=== PATIENT | male | born 1955 | race Caucasian/White ===

== ENCOUNTER 2019-03-25 09:21 | Day surgery (SDC) | payer OTHER ==
[~2019-03-25] VITALS: Ht 172.7 cm; Wt 168.0 kg
[2019-03-25] MEDS ORDERED: ALBU90OI INH (10:31)
[2019-03-25] MEDS ORDERED: BUPR150ER PO (10:32)
[2019-03-25] MEDS ORDERED: Epipen Jr0.15 MG/0. IM (10:33)
[2019-03-25] MEDS ORDERED: Metformin HCl1000 MG PO (10:34)
[2019-03-25] MEDS ORDERED: Prozac20 MG PO (10:34)
[2019-03-25] MEDS ORDERED: Pravachol40 MG PO (10:34)
[2019-03-25] MEDS ORDERED: TRAZ50 PO (10:34)
--- NOTE | 2019-03-25 11:52 | NUR ---
03/25/19 1152 Cynthia Talley PT VERY SLOW TO AWAKE, WHEN AWAKE ORAL AIRWAY WAS REMOVED. VSS.
--- NOTE | 2019-03-25 12:08 | NUR ---
03/25/19 1208 Cynthia Talley PT RESTING COMFORTABLY, XRAY CALLED. REPORT GIVEN TO FANTASMA TRINH TO ASSUME CARE OF PT, PT LEFT IN HER CARE.
--- NOTE | 2019-03-25 13:53 | NUR ---
03/25/19 1353 Willam Merida 2 IV ATTEMPTS - WILLAM MEEK LEFT FOREARM/ INFILTRATED 2 IV ATTEMPTS- NATAN MEEK LEFT HAND/LAC- INFILTRATED
== END 2019-03-25 13:27 | disposition home or self-care (01) ==
LOC: ORSCSDS 09:21
PROVIDERS: Surgery
PROC: 05HM33Z Insertion of Infusion Device into Right Internal Jugular Vein, Percutaneous Approach (ICD-10-PCS; principal; 2019-03-25 10:45)
PROC: B5131ZA Fluoroscopy of Right Jugular Veins using Low Osmolar Contrast, Guidance (ICD-10-PCS; principal; 2019-03-25 10:45)
DX: C18.7 Malignant neoplasm of sigmoid colon (principal); E11.9 Type 2 diabetes mellitus without complications; Z79.899 Other long term (current) drug therapy
CPT/HCPCS: 77001; 82947; C1788; J0690; J1642; J2250; J2405; J2704; J3010

== ENCOUNTER → 2019-04-21 | Outpatient (CLI) | payer OTHER ==
[~2019-04-21] MED LIST: ALBU90OI INH; BUPR150ER PO; Epipen Jr0.15 MG/0. IM; Metformin HCl1000 MG PO; Pravachol40 MG PO; Prozac20 MG PO; TRAZ50 PO
[2019-04-21 15:12] LABS: Albumin, Blood 3.3 g/dL (3.4-5.0); Albumin/Globulin Ratio 0.9 (0.8-1.8); Bilirubin, Total 0.2 mg/dL (0.1-1.0); Bun/Creatinine Ratio 17.1 (12.0-20.0); Creatinine, Blood 1.4 mg/dL (0.60-1.20); Globulin, Blood 3.7 g/dL (2.2-4.0); Potassium, Blood 4.7 mmol/L (3.5-5.5)
== END | disposition home or self-care (01) ==
LOC: LAB 12:41 → LAB SHORT 12:41
PROVIDERS: Internal Medicine Hematology & Oncology
DX: D51.8 Other vitamin B12 deficiency anemias (principal); C18.9 Malignant neoplasm of colon, unspecified
CPT/HCPCS: 80053; 82607; 82746

== ENCOUNTER → 2019-05-04 | Outpatient (CLI) | payer OTHER | END | disposition home or self-care (01) | LOC: LAB 10:30 → LAB SHORT 10:30 | DX: C18.9 Malignant neoplasm of colon, unspecified (principal) | CPT/HCPCS: 82378 ==

== ENCOUNTER 2019-06-22 08:28 | Day surgery (SDC) | payer OTHER ==
--- NOTE | 2019-06-22 12:04 | NUR ---
PT TO RADIOLOGY FOR CT SCAN
--- NOTE | 2019-06-22 12:24 | NUR ---
PATIENT TAKEN TO RADIOLOGY AND DISCHARGED FROM RADIOLOGY HAS NOT QUESTIONS ABOUT DISCHARGE INSTRUCTIONS.
--- NOTE | 2019-06-24 12:37 | NUR ---
06/24/19 1237 Regina Renee PROCEDURE EDIT FOR PURPOSES OF VERIFICATION.
== END 2019-06-22 22:35 | disposition home or self-care (01) ==
LOC: CT 08:28
DX: C64.2 Malignant neoplasm of left kidney, except renal pelvis (principal); J45.909 Unspecified asthma, uncomplicated; C18.9 Malignant neoplasm of colon, unspecified; E10.9 Type 1 diabetes mellitus without complications; Z79.899 Other long term (current) drug therapy
CPT/HCPCS: 50200; 77012; 88305; 88341; 88342

== ENCOUNTER → 2019-07-25 | Outpatient (CLI) | payer OTHER ==
[2019-07-25 15:17] LABS: Alanine Aminotransfer (ALT/SGP 19 U/L (12-78); Albumin, Blood 3.2 g/dL (3.4-5.0); Alk Phos 81 U/L (50-136); Anion Gap 8 mmol/L (6-16); Aspartate Aminotrans (AST/SGOT 19 U/L (12-37); Bilirubin, Total 0.2 mg/dL (0.1-1.0); Blood Urea Nitrogen 20 mg/dL (8-24); CO2, Blood 26 mmol/L (21-32); Calcium, Blood 8.7 mg/dL (8.5-10.1); Chloride, Blood 105 mmol/L (98-108); Globulin, Blood 3.3 g/dL (2.2-4.0); Glomerular Filtration Rate >60 (60-); Glucose, Blood 159 mg/dL (70-99); Potassium, Blood 4.7 mmol/L (3.5-5.5); Sodium, Blood 139 mmol/L (136-145); Total Protein, Blood 6.5 g/dL (6.4-8.2)
== END | disposition home or self-care (01) ==
LOC: LAB 09:55 → LAB SHORT 09:55
PROVIDERS: Internal Medicine Hematology & Oncology
DX: C18.7 Malignant neoplasm of sigmoid colon (principal)
CPT/HCPCS: 80053; 82378

== ENCOUNTER → 2019-08-31 | Outpatient (CLI) | payer OTHER, MEDICARE ==
[2019-08-31 11:49] LABS: BASOPHILS ABSOLUTE AUTO 0.05 K/mm3 (0.00-0.23); BASOPHILS PERCENT AUTO 1 % (0-2); EOSINOPHILS ABSOLUTE AUTO 0.67 K/mm3 (0.00-0.68); EOSINOPHILS PERCENT AUTO 10 % (0-6); Hematocrit 34.6 % (37.0-53.0); Hemoglobin 10.8 g/dL (13.5-17.5); IMMATURE GRAN ABSOLUTE AUTO 0.01 K/mm3 (0.00-0.10); IMMATURE GRAN PERCENT AUTO 0 % (0-1); LYMPHOCYTES ABSOLUTE AUTO 1.11 K/mm3 (0.84-5.20); LYMPHOCYTES PERCENT AUTO 17 % (21-46); MONOCYTES ABSOLUTE AUTO 0.91 K/mm3 (0.16-1.47); MONOCYTES PERCENT AUTO 14 % (4-13); Mean Corpuscular HGB 28.1 pg (26.0-34.0); Mean Corpuscular HGB Conc 31.2 g/dL (31.5-36.5); Mean Corpuscular Volume 90 fL (80-100); NEUTROPHILS ABSOLUTE AUTO 3.93 K/mm3 (1.96-9.15); NEUTROPHILS PERCENT AUTO 59 % (41-73); Platelet Count 314 K/mm3 (150-400); RDW Coefficient Variation 15.6 % (11.7-14.2); RDW Standard Deviation 50.8 fL (35.1-46.3); Red Blood Cell Count 3.85 M/mm3 (4.30-5.90); White Blood Cell Count 6.68 K/mm3 (4.00-11.30)
== END | disposition home or self-care (01) ==
LOC: LAB 11:31 → LAB SHORT 11:31
PROVIDERS: Internal Medicine Hematology & Oncology
DX: C18.7 Malignant neoplasm of sigmoid colon (principal)
CPT/HCPCS: 82378; 85025

== ENCOUNTER → 2019-09-06 | Outpatient (CLI) | payer OTHER, MEDICARE | END | disposition home or self-care (01) | LOC: LAB 17:24 → LAB SHORT 17:24 | DX: C18.7 Malignant neoplasm of sigmoid colon (principal) | CPT/HCPCS: 82378 ==

== ENCOUNTER → 2019-09-27 | Outpatient (CLI) | payer OTHER, MEDICARE ==
[2019-09-27 14:45] LABS: Alanine Aminotransfer (ALT/SGP 19 U/L (12-78); Albumin, Blood 3.3 g/dL (3.4-5.0); Alk Phos 81 U/L (50-136); Anion Gap 8 mmol/L (6-16); Aspartate Aminotrans (AST/SGOT 18 U/L (12-37); Bilirubin, Total 0.3 mg/dL (0.1-1.0); Blood Urea Nitrogen 14 mg/dL (8-24); Bun/Creatinine Ratio 13.5 (12.0-20.0); CO2, Blood 27 mmol/L (21-32); Calcium, Blood 8.6 mg/dL (8.5-10.1); Chloride, Blood 105 mmol/L (98-108); Creatinine, Blood 1.04 mg/dL (0.60-1.20); Globulin, Blood 3.2 g/dL (2.2-4.0); Glomerular Filtration Rate >60 (60-); Glucose, Blood 158 mg/dL (70-99); Potassium, Blood 4.3 mmol/L (3.5-5.5); Sodium, Blood 140 mmol/L (136-145); Total Protein, Blood 6.5 g/dL (6.4-8.2)
== END | disposition home or self-care (01) ==
LOC: LAB 13:27 → LAB SHORT 13:27
PROVIDERS: Internal Medicine Hematology & Oncology
DX: C18.7 Malignant neoplasm of sigmoid colon (principal)
CPT/HCPCS: 80053; 82378

== ENCOUNTER → 2019-10-11 | Outpatient (CLI) | payer OTHER ==
[2019-10-11 11:59] LABS: Carcinoembryonic Antigen 151.9 ng/mL (0.0-3.0); Percent Saturation 19.2 % (20.0-50.0)
[2019-10-11 12:56] LABS: Alanine Aminotransfer (ALT/SGP 18 U/L (12-78); Albumin, Blood 3.3 g/dL (3.4-5.0); Albumin/Globulin Ratio 1.1 (0.8-1.8); Alk Phos 91 U/L (50-136); Anion Gap 10 mmol/L (6-16); Aspartate Aminotrans (AST/SGOT 14 U/L (12-37); Bilirubin, Total 0.4 mg/dL (0.1-1.0); Blood Urea Nitrogen 16 mg/dL (8-24); Bun/Creatinine Ratio 13.4 (12.0-20.0); CO2, Blood 24 mmol/L (21-32); Calcium, Blood 8.5 mg/dL (8.5-10.1); Chloride, Blood 106 mmol/L (98-108); Creatinine, Blood 1.19 mg/dL (0.60-1.20); Globulin, Blood 3.1 g/dL (2.2-4.0); Glomerular Filtration Rate >60 (60-); Glucose, Blood 123 mg/dL (70-99); Potassium, Blood 4.2 mmol/L (3.5-5.5); Sodium, Blood 140 mmol/L (136-145); Total Protein, Blood 6.4 g/dL (6.4-8.2)
== END | disposition home or self-care (01) ==
LOC: LAB SHORT 09:49 → LAB 09:49
PROVIDERS: Internal Medicine Hematology & Oncology
DX: C18.7 Malignant neoplasm of sigmoid colon (principal); K22.70 Barrett's esophagus without dysplasia; K57.30 Diverticulosis of large intestine without perforation or abscess without bleeding
CPT/HCPCS: 80053; 82378; 82728; 83540; 83550

== ENCOUNTER → 2019-11-29 | Outpatient (CLI) | payer OTHER ==
[2019-11-29 11:09] LABS: BASOPHILS ABSOLUTE AUTO 0.04 K/mm3 (0.00-0.23); BASOPHILS PERCENT AUTO 1 % (0-2); EOSINOPHILS ABSOLUTE AUTO 0.32 K/mm3 (0.00-0.68); EOSINOPHILS PERCENT AUTO 5 % (0-6); Hematocrit 29.2 % (37.0-53.0); IMMATURE GRAN ABSOLUTE AUTO 0.01 K/mm3 (0.00-0.10); IMMATURE GRAN PERCENT AUTO 0 % (0-1); LYMPHOCYTES ABSOLUTE AUTO 0.68 K/mm3 (0.84-5.20); LYMPHOCYTES PERCENT AUTO 11 % (21-46); MONOCYTES ABSOLUTE AUTO 0.61 K/mm3 (0.16-1.47); MONOCYTES PERCENT AUTO 10 % (4-13); Mean Corpuscular HGB 27.5 pg (26.0-34.0); Mean Corpuscular HGB Conc 30.8 g/dL (31.5-36.5); Mean Corpuscular Volume 89 fL (80-100); Mean Platelet Volume 10.1 fL (9.1-12.4); NEUTROPHILS ABSOLUTE AUTO 4.34 K/mm3 (1.96-9.15); NEUTROPHILS PERCENT AUTO 72 % (41-73); Platelet Count 278 K/mm3 (150-400); RDW Coefficient Variation 15.1 % (11.7-14.2); RDW Standard Deviation 49.9 fL (35.1-46.3); Red Blood Cell Count 3.27 M/mm3 (4.30-5.90)
[2019-11-29 11:25] LABS: Albumin, Blood 3.2 g/dL (3.4-5.0); Bilirubin, Total 0.5 mg/dL (0.1-1.0); Bun/Creatinine Ratio 17.1 (12.0-20.0); Calcium, Blood 8.4 mg/dL (8.5-10.1); Creatinine, Blood 1.29 mg/dL (0.60-1.20); Globulin, Blood 3.2 g/dL (2.2-4.0); Potassium, Blood 4.2 mmol/L (3.5-5.5); Thyroid Stimulating Hormone 1.41 uIU/mL (0.360-4.800); Total Protein, Blood 6.4 g/dL (6.4-8.2)
== END | disposition home or self-care (01) ==
LOC: LAB 10:41 → LAB SHORT 10:41
PROVIDERS: Internal Medicine Hematology & Oncology
DX: C18.7 Malignant neoplasm of sigmoid colon (principal); E78.5 Hyperlipidemia, unspecified
CPT/HCPCS: 80053; 83615; 84443; 85025

== ENCOUNTER → 2020-02-09 | Outpatient (CLI) | payer OTHER ==
[2020-02-09 10:54] LABS: Carcinoembryonic Antigen 60.5 ng/mL (0.0-3.0)
[2020-02-09 11:18] LABS: Alanine Aminotransfer (ALT/SGP 20 U/L (12-78); Albumin, Blood 3.1 g/dL (3.4-5.0); Albumin/Globulin Ratio 0.9 (0.8-1.8); Alk Phos 107 U/L (50-136); Anion Gap 9 mmol/L (6-16); Aspartate Aminotrans (AST/SGOT 17 U/L (12-37); Bilirubin, Total 0.3 mg/dL (0.1-1.0); Blood Urea Nitrogen 16 mg/dL (8-24); Bun/Creatinine Ratio 15.8 (12.0-20.0); CO2, Blood 25 mmol/L (21-32); Calcium, Blood 8.3 mg/dL (8.5-10.1); Chloride, Blood 105 mmol/L (98-108); Creatinine, Blood 1.01 mg/dL (0.60-1.20); Free Thyroxine 1.09 ng/dL (0.70-1.60); Globulin, Blood 3.3 g/dL (2.2-4.0); Glomerular Filtration Rate >60 (60-); Glucose, Blood 214 mg/dL (70-99); Lactate Dehydrogenase (Ld),Bld 129 U/L (100-240); Potassium, Blood 4.2 mmol/L (3.5-5.5); Sodium, Blood 139 mmol/L (136-145); Total Protein, Blood 6.4 g/dL (6.4-8.2)
== END | disposition home or self-care (01) ==
LOC: LAB 10:16 → LAB SHORT 10:16
PROVIDERS: Internal Medicine Hematology & Oncology
DX: C18.7 Malignant neoplasm of sigmoid colon (principal); D50.9 Iron deficiency anemia, unspecified
CPT/HCPCS: 80053; 82378; 82728; 83540; 83550; 83615; 84439; 84443

== ENCOUNTER → 2020-03-13 | Outpatient (CLI) | payer OTHER ==
[2020-03-13 10:26] LABS: Alanine Aminotransfer (ALT/SGP 18 U/L (12-78); Albumin, Blood 3.3 g/dL (3.4-5.0); Alk Phos 115 U/L (50-136); Anion Gap 8 mmol/L (6-16); Aspartate Aminotrans (AST/SGOT 22 U/L (12-37); Bilirubin, Total 0.3 mg/dL (0.1-1.0); Blood Urea Nitrogen 20 mg/dL (8-24); Bun/Creatinine Ratio 18.2 (12.0-20.0); CO2, Blood 24 mmol/L (21-32); Calcium, Blood 8.6 mg/dL (8.5-10.1); Chloride, Blood 107 mmol/L (98-108); Globulin, Blood 3.3 g/dL (2.2-4.0); Glomerular Filtration Rate >60 (60-); Glucose, Blood 120 mg/dL (70-99); Lactate Dehydrogenase (Ld),Bld 216 U/L (100-240); Phosphorus, Blood 1.8 mg/dL (2.5-4.9); Potassium, Blood 4.5 mmol/L (3.5-5.5); Sodium, Blood 139 mmol/L (136-145); Total Protein, Blood 6.6 g/dL (6.4-8.2)
== END | disposition home or self-care (01) ==
LOC: LAB SHORT 09:59 → LAB 09:59
PROVIDERS: Internal Medicine Hematology & Oncology
DX: C18.7 Malignant neoplasm of sigmoid colon (principal)
CPT/HCPCS: 80053; 82378; 83615; 84100

== ENCOUNTER → 2020-03-27 | Outpatient (CLI) | payer OTHER ==
[2020-03-27 12:47] LABS: BASOPHILS ABSOLUTE AUTO 0.08 K/mm3 (0.00-0.23); BASOPHILS PERCENT AUTO 1 % (0-2); EOSINOPHILS ABSOLUTE AUTO 2.59 K/mm3 (0.00-0.68); EOSINOPHILS PERCENT AUTO 29 % (0-6); Hematocrit 38.7 % (37.0-53.0); Hemoglobin 12.2 g/dL (13.5-17.5); IMMATURE GRAN ABSOLUTE AUTO 0.01 K/mm3 (0.00-0.10); IMMATURE GRAN PERCENT AUTO 0 % (0-1); LYMPHOCYTES ABSOLUTE AUTO 0.93 K/mm3 (0.84-5.20); LYMPHOCYTES PERCENT AUTO 11 % (21-46); MONOCYTES ABSOLUTE AUTO 0.56 K/mm3 (0.16-1.47); MONOCYTES PERCENT AUTO 6 % (4-13); Mean Corpuscular HGB 29.8 pg (26.0-34.0); Mean Corpuscular HGB Conc 31.5 g/dL (31.5-36.5); Mean Corpuscular Volume 94 fL (80-100); NEUTROPHILS ABSOLUTE AUTO 4.64 K/mm3 (1.96-9.15); NEUTROPHILS PERCENT AUTO 53 % (41-73); Platelet Count 229 K/mm3 (150-400); RDW Coefficient Variation 17.3 % (11.7-14.2); RDW Standard Deviation 61.1 fL (35.1-46.3); White Blood Cell Count 8.81 K/mm3 (4.00-11.30)
[2020-03-27 13:33] LABS: Alanine Aminotransfer (ALT/SGP 24 U/L (12-78); Albumin, Blood 2.9 g/dL (3.4-5.0); Albumin/Globulin Ratio 0.9 (0.8-1.8); Alk Phos 108 U/L (50-136); Anion Gap 12 mmol/L (6-16); Aspartate Aminotrans (AST/SGOT 39 U/L (12-37); Bilirubin, Total 0.5 mg/dL (0.1-1.0); Blood Urea Nitrogen 13 mg/dL (8-24); Bun/Creatinine Ratio 12.7 (12.0-20.0); CO2, Blood 19 mmol/L (21-32); Calcium, Blood 8.2 mg/dL (8.5-10.1); Chloride, Blood 108 mmol/L (98-108); Creatinine, Blood 1.02 mg/dL (0.60-1.20); Globulin, Blood 3.2 g/dL (2.2-4.0); Glomerular Filtration Rate >60 (60-); Glucose, Blood 193 mg/dL (70-99); Phosphorus, Blood 2.5 mg/dL (2.5-4.9); Potassium, Blood 4.6 mmol/L (3.5-5.5); Sodium, Blood 139 mmol/L (136-145); Thyroxine (T4) 9.7 ug/dL (4.5-12.1); Total Protein, Blood 6.1 g/dL (6.4-8.2)
== END | disposition home or self-care (01) ==
LOC: LAB 10:11 → LAB SHORT 10:11
PROVIDERS: Internal Medicine Hematology & Oncology
DX: C18.7 Malignant neoplasm of sigmoid colon (principal)
CPT/HCPCS: 80053; 84100; 84436; 84443; 85025

== ENCOUNTER → 2020-04-24 | Outpatient (CLI) | payer OTHER ==
[2020-04-25 19:09] LABS: ADENOVIRUS F 40/41 Not Detected (Not Detected); ASTROVIRUS Not Detected (Not Detected); C DIFFICILE TOXIN A/B Not Detected (Not Detected); CAMPYLOBACTER Not Detected (Not Detected); CRYPTOSPORIDIUM Not Detected (Not Detected); CYCLOSPORA CAYETANENSIS Not Detected (Not Detected); ENTAMOEBA HISTOLYTICA Not Detected (Not Detected); ENTEROAGGREGATIVE E COLI Not Detected (Not Detected); ENTEROPATHOGENIC E COLI Not Detected (Not Detected); ENTEROTOXIGENIC E COLI Not Detected (Not Detected); GIARDIA LAMBLIA Not Detected (Not Detected); NOROVIRUS GI/GII Not Detected (Not Detected); PLESIOMONAS SHIGELLOIDES Not Detected (Not Detected); ROTAVIRUS A Not Detected (Not Detected); SALMONELLA Not Detected (Not Detected); SAPOVIRUS Not Detected (Not Detected); SHIGA-TOXIN-PRODUCING E COLI Not Detected (Not Detected); SHIGELLA/ENTEROINVASIVE E COLI Not Detected (Not Detected); VIBRIO Not Detected (Not Detected); VIBRIO CHOLERAE Not Detected (Not Detected); YERSINIA ENTEROCOLITICA Not Detected (Not Detected)
== END | disposition home or self-care (01) ==
LOC: LAB SHORT 09:35 → LAB 09:35 → LAB FUT 04-18 13:55
PROVIDERS: Internal Medicine Hematology & Oncology
DX: R19.7 Diarrhea, unspecified (principal)
CPT/HCPCS: 0097U

== ENCOUNTER → 2020-09-25 | Outpatient (CLI) | payer OTHER ==
[2020-09-25 19:00] LABS: BASOPHILS ABSOLUTE AUTO 0.06 K/mm3 (0.00-0.23); BASOPHILS PERCENT AUTO 1 % (0-2); EOSINOPHILS ABSOLUTE AUTO 1.45 K/mm3 (0.00-0.68); EOSINOPHILS PERCENT AUTO 16 % (0-6); Hematocrit 34.5 % (37.0-53.0); Hemoglobin 11.2 g/dL (13.5-17.5); IMMATURE GRAN ABSOLUTE AUTO 0.03 K/mm3 (0.00-0.10); IMMATURE GRAN PERCENT AUTO 0 % (0-1); LYMPHOCYTES ABSOLUTE AUTO 1.05 K/mm3 (0.84-5.20); LYMPHOCYTES PERCENT AUTO 11 % (21-46); MONOCYTES ABSOLUTE AUTO 0.93 K/mm3 (0.16-1.47); MONOCYTES PERCENT AUTO 10 % (4-13); Mean Corpuscular HGB 31.2 pg (26.0-34.0); Mean Corpuscular HGB Conc 32.5 g/dL (31.5-36.5); Mean Corpuscular Volume 96 fL (80-100); Mean Platelet Volume 10.2 fL (9.1-12.4); NEUTROPHILS PERCENT AUTO 62 % (41-73); Platelet Count 273 K/mm3 (150-400); RDW Coefficient Variation 13.2 % (11.7-14.2); RDW Standard Deviation 46.8 fL (35.1-46.3); Red Blood Cell Count 3.59 M/mm3 (4.30-5.90); White Blood Cell Count 9.32 K/mm3 (4.00-11.30)
== END | disposition home or self-care (01) ==
LOC: LAB SHORT 10:35
PROVIDERS: Internal Medicine Hematology & Oncology
DX: C18.7 Malignant neoplasm of sigmoid colon (principal)
CPT/HCPCS: 85025

== ENCOUNTER → 2020-11-14 | Outpatient (CLI) | payer OTHER ==
[2020-11-14 17:19] LABS: Alanine Aminotransfer (ALT/SGP 32 U/L (12-78); Albumin, Blood 3.3 g/dL (3.4-5.0); Alk Phos 220 U/L (50-136); Anion Gap 5 mmol/L (6-16); Aspartate Aminotrans (AST/SGOT 27 U/L (12-37); Bilirubin, Direct <0.1 mg/dL (0.0-0.3); Bilirubin, Total 0.4 mg/dL (0.1-1.0); Blood Urea Nitrogen 23 mg/dL (8-24); Bun/Creatinine Ratio 18.3 (12.0-20.0); CO2, Blood 28 mmol/L (21-32); Calcium, Blood 9.2 mg/dL (8.5-10.1); Chloride, Blood 103 mmol/L (98-108); Creatinine, Blood 1.26 mg/dL (0.60-1.20); Globulin, Blood 3.3 g/dL (2.2-4.0); Glomerular Filtration Rate >60 (60-); Glucose, Blood 149 mg/dL (70-99); Potassium, Blood 4.4 mmol/L (3.5-5.5); Sodium, Blood 136 mmol/L (136-145); Total Protein, Blood 6.6 g/dL (6.4-8.2)
[2020-11-14 17:22] LABS: Bilirubin, Indirect Unable to Calculate mg/dL (0.1-0.7)
== END | disposition home or self-care (01) ==
LOC: LAB SHORT 15:13
PROVIDERS: Internal Medicine Hematology & Oncology
DX: C18.7 Malignant neoplasm of sigmoid colon (principal); C78.6 Secondary malignant neoplasm of retroperitoneum and peritoneum
CPT/HCPCS: 80053; 82248; 82378

== ENCOUNTER → 2020-12-07 | Outpatient (CLI) | payer OTHER ==
[2020-12-09 20:35] LABS: C DIFFICILE DNA Negative (Negative)
== END | disposition home or self-care (01) ==
LOC: LAB 13:30 → LAB SHORT 13:30
PROVIDERS: Internal Medicine Hematology & Oncology
DX: R19.7 Diarrhea, unspecified (principal)
CPT/HCPCS: 87493